=== PATIENT | female | born 1950 | race African-American/Black ===

== ENCOUNTER 2017-11-22 05:13 | Day surgery (SDC) | payer OTHER ==
[2017-11-13 11:29] LABS: INR 1.04 (0.82-1.09); PROTHROMBIN TIME (PATIENT) 11.7 SEC (9.7-13.0)
[2017-11-13 11:32] LABS: ACTIVATED PTT 30.3 SECONDS (25.2-36.5)
[2017-11-13 11:34] LABS: BASO % 0.9 % (0-2.0); HEMOGLOBIN 14.4 GM/dL (10.7-15.3); LYMPH % 28.7 % (8-40); MCH 26.8 pg (25.7-33.7); MCHC 32.7 g/dl (32.0-36.0); MEAN PLT VOLUME 8.8 fl (7.5-11.1); MONO % 7.7 % (3.8-10.2); NEUT % 60.7 % (42.8-82.8); PLATELET COUNT 251 K/MM3 (134-434); RBC 5.37 M/mm3 (3.60-5.2); RDW 15.9 % (11.6-15.6); WHITE BLOOD COUNT 5.8 K/mm3 (4.0-10.0)
[2017-11-13 11:36] LABS: CHLORIDE 104 mmol/L (98-107); POTASSIUM 4.1 mmol/L (3.5-5.1); SODIUM 140 mmol/L (136-145)
[2017-11-13 11:56] LABS: ALBUMIN 3.8 g/dl (3.4-5.0); ALK PHOS 80 U/L (45-117); ANION GAP 10 (8-16); BILIRUBIN,TOTAL 0.7 mg/dL (0.2-1.0); BLOOD UREA NITROGEN 16 mg/dL (7-18); CALCIUM 9.3 mg/dL (8.5-10.1); CO2 26 mmol/L (21-32); CREATININE 0.7 mg/dL (0.55-1.02); GLUCOSE,RANDOM 157 mg/dL (74-106); SGOT/AST 14 U/L (15-37); SGPT/ALT 23 U/L (12-78); TOT PROT 7.7 g/dl (6.4-8.2)
--- NOTE | 2017-11-14 10:10 | EKG ---
Test Reason : Blood Pressure : / mmHG Vent. Rate : 068 BPM Atrial Rate : 068 BPM P-R Int : 162 ms QRS Dur : 084 ms QT Int : 396 ms P-R-T Axes : 062 078 059 degrees QTc Int : 421 ms NORMAL SINUS RHYTHM NORMAL ECG NO PREVIOUS ECGS AVAILABLE Confirmed by YVETTE PRATT, THADDEUS ([id number]) on 11/14/2017 10:09:54 AM Referred By: BRENNEN PAGE Confirmed By:THADDEUS CRAWFORD MD
[2017-11-15 15:59] VITALS: BMI 32.7
[2017-11-22] MEDS ORDERED: MICROFIBRILLAR COLLAGEN 1 GM EACH ONE (09:39)
[2017-11-22] MEDS ORDERED: MIDAZOLAM HCL 2 MG/2 ML SINGLE DOSE VIAL ONE (11:16)
[2017-11-22] MEDS ORDERED: DEXAMETHASONE SOD PHOSPHATE 4 MG/1 ML VIAL ONE ×2 (11:23→13:24)
[2017-11-22] MEDS ORDERED: PROPOFOL 20 ML ONE ×2 (11:25→11:36)
[2017-11-22] MEDS ORDERED: ceFAZolin SODIUM 1 GM VIAL IVPB ONE (11:43)
[2017-11-22] MEDS ORDERED: ceFAZolin SODIUM 1 GM VIAL ONE (11:43)
[2017-11-22] MEDS ORDERED: BUPIVACAINE HCL/PF (5 MG/ML) 30 ML VIAL IJ ONE (11:52)
[2017-11-22] MEDS ORDERED: LIDOCAINE 1%/EPI 1:100000 (50 ML MULTI DOSE VIAL) INF ONE (11:52)
[2017-11-22] MEDS ORDERED: ePHEDrine SULFATE 50 MG/1 ML AMPULE ONE (12:37)
[2017-11-22] MEDS ORDERED: oxyCODONE HCL 5 MG TABLET PO PRN (13:49)
[2017-11-22] MEDS ORDERED: LACTATED RINGERS SOLUTION 1,000 ML IV SCH ×2 (14:00)
--- NOTE | 2017-11-22 14:06 | OP ---
Operative Note - Note: Operative Date: 11/22/17 Pre-Operative Diagnosis: Thyroid goiter Operation: Total thyroidectomy Post-Operative Diagnosis: Same as Pre-op Surgeon: See Ravi Precision Lathe Operator: Francesco Chawla Anesthesia: General Estimated Blood Loss (mls): 50 Fluid Volume Replaced (mls): 1,100 Operative Report Dictated: Yes
--- NOTE | 2017-11-22 14:07 | SURG ---
Surgery Sales And Marketing Manager Note Sales And Marketing Manager: Francesco Chawla PA-C Date of Service: 11/22/17 Diagnosis: Thyroid goiter Procedure: Total thyroidectomy I was present for the entirety of the operative procedure. For further detail, please refer to operative report.
[2017-11-22] MEDS ORDERED: CALCIUM CARBONATE 650 MG TABLET PO SCH (14:08)
[2017-11-22] MEDS ORDERED: CALCITRIOL 0.25 MCG CAPSULE (FP) PO SCH (14:08)
[2017-11-22] MEDS ORDERED: ACETAMINOPHEN 1000 MG/100 ML VIAL (NON FORMULARY) IVPB ONE ×2 (16:30→16:49)
[2017-11-22] MEDS ORDERED: CALCITRIOL 0.25 MCG CAPSULE (FP) PO ONE (16:30)
[2017-11-22] MEDS ORDERED: ACETAMINOPHEN INJECTION 100 ML IVPB ONE (16:40)
[2017-11-22] MEDS ORDERED: ONDANSETRON 4 MG/2 ML VIAL IVPUSH PRN (16:43)
[2017-11-22] MEDS ORDERED: DEXTROSE 5%-0.45% SALINE 1,000 ML IV SCH (16:45)
[2017-11-22] MEDS ORDERED: SODIUM CHLORIDE 1,000 ML IV SCH (17:00)
--- NOTE | 2017-11-22 20:10 | OP ---
DATE OF OPERATION: 11/22/2017 SURGICAL ATTENDING: Brennen Page MD PREOPERATIVE DIAGNOSIS: Thyroid goiter. POSTOPERATIVE DIAGNOSIS: Thyroid goiter. ANESTHESIA: General endotracheal. PROCEDURE: 1. Total thyroidectomy. 2. Neck ultrasound. DESCRIPTION OF PROCEDURE: The patient was taken into the operating room, placed in a supine position, endotracheally intubated. Neck ultrasound was performed showing enlarged nodules bilaterally, right greater than left, with left tracheal deviation. The neck was then prepped and draped in usual sterile fashion. Local anesthesia was administered, and a 6-cm incision was made in a mid-anterior neck skin crease. This was carried down through subcutaneous tissues and platysma. Subplatysmal flaps were raised superiorly and inferiorly, and flap hooks were placed for exposure. The median raphe was incised, and the strap muscles were elevated bilaterally. Dissection began on the right side where the superior and recurrent laryngeal nerves were identified and preserved. The parathyroid glands were also preserved. The superior, inferior, and posterior attachments were transected. The isthmus was then transected, and in this way, the right thyroid lobe was removed. It was inspected for parathyroid tissue, and none was found. It was then passed off the field for permanent evaluation. The left recurrent laryngeal and superior laryngeal nerves were identified, dissected, and preserved. The parathyroid glands were also preserved. The superior, posterior, and inferior attachments were transected, and in this way, the left thyroid lobe was removed. It was inspected for parathyroid tissue; none was found. It was then passed off the field for evaluation/permanent pathology. Hemostasis was achieved with electrocautery and Avitene. Note that the nerve monitor was used throughout. Hemostasis was assured. The wound was then closed in 3 layers. Dermabond was placed. The patient was then awakened, extubated, and taken to recovery in stable condition. Dr. Page, the attending surgeon, was present throughout the entire procedure. BRENNEN PAGE M.D. [id number]
[2017-11-23] MEDS: ACETAMINOPHEN 325 MG TABLET (FP) PO PRN ×2 (02:32→09:50)
[2017-11-23] MEDS ORDERED: glipiZIDE-XL 2.5 MG TAB.ER.24 PO SCH ×2 (07:00→10:00)
[2017-11-23 08:41] VITALS: BP 113/58; PULSE 70; TEMP 99.1
[2017-11-23] MEDS ORDERED: PT OWN MED DRAWER 7, Y5N ONE (09:49)
--- NOTE | 2017-11-23 09:49 | DS ---
Physical Exam: SUBJECTIVE: Patient seen and examined OBJECTIVE: 67yo F s/p Total thyroidectomy POD 1, Pt seen sitting in chair. Pt states that she is feeling well. Denies fever, chills, n/v. Pt tolerating PO and urinating freely. Vital Signs Temperature 99.1 F 11/23/17 08:30 Pulse Rate 70 11/23/17 08:30 Respiratory Rate 18 11/23/17 08:30 Blood Pressure 113/58 11/23/17 08:30 O2 Sat by Pulse Oximetry (%) 94 L 11/22/17 21:00 PHYSICAL EXAM GENERAL: The patient is awake, alert, and fully oriented, in no acute distress. HEAD: Normal with no signs of trauma. EYES: PERRL, extraocular movements intact, sclera anicteric, conjunctiva clear. ENT: Ears normal, nares patent, oropharynx clear without exudates, moist mucous membranes. NECK: Trachea midline, full range of motion, supple. EXTREMITIES: 2+ pulses, warm, well-perfused, no edema. NEUROLOGICAL: Cranial nerves II through XII grossly intact. Normal speech, gait not observed. PSYCH: Normal mood, normal affect. SKIN: Warm, dry, normal turgor, no rashes or lesions noted. LABS CBC,CMP WBC 5.8 K/mm3 (4.0-10.0) 11/13/17 10:51 RBC 5.37 M/mm3 (3.60-5.2) H 11/13/17 10:51 Hgb 14.4 GM/dL (10.7-15.3) 11/13/17 10:51 Hct 44.0 % (32.4-45.2) 11/13/17 10:51 MCV 82.0 fl (80-96) 11/13/17 10:51 MCH 26.8 pg (25.7-33.7) 11/13/17 10:51 MCHC 32.7 g/dl (32.0-36.0) 11/13/17 10:51 RDW 15.9 % (11.6-15.6) H 11/13/17 10:51 Plt Count 251 K/MM3 (134-434) 11/13/17 10:51 MPV 8.8 fl (7.5-11.1) 11/13/17 10:51 Absolute Neuts (auto) 3.5 # 11/13/17 10:51 Neutrophils % 60.7 % (42.8-82.8) 11/13/17 10:51 Lymphocytes % 28.7 % (8-40) 11/13/17 10:51 Monocytes % 7.7 % (3.8-10.2) 11/13/17 10:51 Eosinophils % 2.0 % (0-4.5) 11/13/17 10:51 Basophils % 0.9 % (0-2.0) 11/13/17 10:51 Nucleated RBC % 0 % (0-0) 11/13/17 10:51 Sodium 140 mmol/L (136-145) 11/13/17 10:51 Potassium 4.1 mmol/L (3.5-5.1) 11/13/17 10:51 Chloride 104 mmol/L (98-107) 11/13/17 10:51 Carbon Dioxide 26 mmol/L (21-32) 11/13/17 10:51 Anion Gap 10 (8-16) 11/13/17 10:51 BUN 16 mg/dL (7-18) 11/13/17 10:51 Creatinine 0.7 mg/dL (0.55-1.02) 11/13/17 10:51 Creat Clearance w eGFR > 60 (>60) 11/13/17 10:51 POC Glucometer 147 UNITS (80-120) 11/23/17 05:38 Random Glucose 157 mg/dL (74-106) H 11/13/17 10:51 Calcium 8.7 mg/dL (8.5-10.1) 11/23/17 07:30 Total Bilirubin 0.7 mg/dL (0.2-1.0) 11/13/17 10:51 AST 14 U/L (15-37) L 11/13/17 10:51 ALT 23 U/L (12-78) 11/13/17 10:51 Alkaline Phosphatase 80 U/L (45-117) 11/13/17 10:51 Total Protein 7.7 g/dl (6.4-8.2) 11/13/17 10:51 Albumin 3.8 g/dl (3.4-5.0) 11/13/17 10:51 HOSPITAL COURSE: Date of Admission:07/16/18 Date of Discharge: 11/23/17 The patient was admitted to the Med-Surg Unit after an elective total thyroidectomy for thyroid nodules. The day of surgery, the patient ambulated the hallways with assistance. Narcotic and non-narcotic pain management control was achieved with an oral and IV approach. Sydnee-operative IV ABX were administered. DVT prophylaxis was achieved with SCDs and early ambulation. The patient ambulated and no services were recommended upon discharge. Narcotic scripts were checked with ILS INSULATION ESTIMATOR prior to escibe. The discharge instructions and an oral pain management plan were reviewed with the patient. All questions answered. Above plan discussed with Dr. Ravi and agreed. Minutes to complete discharge: 15 Visit type - Case Type Case Type: Scheduled
[2017-11-23] MEDS ORDERED: CALCIUM CARBONATE 650 MG TABLET PO SCH (10:00)
[2017-11-23] MEDS ORDERED: METFORMIN HCL PO SCH (10:00)
[2017-11-23] MEDS ORDERED: [UNRECOGNIZED DRUG - OTHER] PO SCH (10:00)
[2017-11-23] MEDS ORDERED: DAPAGLIFLOZIN PO SCH (10:00)
[2017-11-23] MEDS ORDERED: CALCITRIOL 0.25 MCG CAPSULE (FP) PO SCH (10:00)
--- NOTE | 2017-11-26 12:21 | PATH ---
Surgical Pathology Report Patient Name: EDWNI FERGUSON [facility]. Rec. #: [id number] /Age/Gender: 1950 (Age: 67) / F Account: [id number] Location: [facility] SURGICAL Taken: 11/22/2017 Received: 11/23/2017 Reported: 11/26/2017 Physicians: See Ravi M.D. Specimen(s) Received A: RIGHT THYROID, TOTAL LOBE B: LEFT THYROID, TOTAL LOBE Clinical History Thyroid nodule Final Diagnosis A. 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 REMAINDER OF THYROID PARENCHYMA SHOWS MULTI NODULAR HYPERPLASIA. RARE LYMPHOID AGGREGATES PRESENT. TWO (2) PARATHYROID GLANDS IDENTIFIED. B. THYROID, LEFT, THYROIDECTOMY: TWO FOCI OF PAPILLARY THYROID CARCINOMA, FOLLICULAR VARIANT, INFILTRATIVE. CARCINOMA MEASURES 3.5 AND 1.5 CM IN GREATEST DIMENSION. NO LYMPHOVASCULAR OR PERINEURAL INVASION IDENTIFIED. NO EXTRATHYROIDAL EXTENSION IDENTIFIED. SURGICAL MARGINS ARE NEGATIVE. REMAINDER OF THYROID PARENCHYMA SHOWS ADENOMATOUS HYPERPLASIA. SEE CASE SUMMARY BELOW. PATHOLOGIC STAGE (pTNM): pT2 pNx Comments Thyroid: Cancer Case Summary Procedure _X_ Total thyroidectomy Tumor Focality _X_ Multifocal (Two foci) Tumor Site _X_ Left lobe Tumor Size Greatest dimension (centimeters): 3.5 cm Histologic Type Papillary Carcinomas _X_ Papillary carcinoma, follicular variant, infiltrative Margins _X_ Uninvolved by carcinoma Angioinvasion (Vascular Invasion) _X_ Not identified Lymphatic Invasion _X_ Not identified Extrathyroidal Extension _X_ Not identified Regional Lymph Nodes _X_ No lymph nodes submitted or found Pathologic Stage Classification (pTNM, AJCC 8th Edition) For Papillary, Follicular, Poorly Differentiated, Hurthle Cell and Anaplastic Thyroid Carcinoma Primary Tumor (pT) _X_ pT2: Tumor >2 cm, but =4 cm in greatest dimension, limited to thyroid Regional Lymph Nodes (pN) _X_ pNX: Regional lymph nodes cannot be assessed Additional Pathologic Findings _X__ Adenoma (Right lobe) _X__ Adenomatoid nodule(s) or nodular follicular disease (nodular hyperplasia) Comment: Office of Dr. Ravi informed that significant findings will be faxed ([place]rielle). Electronically Signed Monica Laureana Ryan-Amish M.D. Gross Description A. Received in formalin labeled "right thyroid lobe," is an 81 g, 6.8 x 5.5 x 3.5 cm thyroid lobe. The outer capsule is red-brown with focal adhesions. Sectioning reveals a 5.2 x 5.1 x 3.8 cm gaona, lobulated, solid mass comprising the entire central and lower pole. The mass abuts the outer capsule but does not appear to invade through it. The remaining thyroid parenchyma is red-brown and beefy. [employer] Business Segment Leader sections are submitted in 10 cassettes as follows: [id number] submitted mass from superior to inferior; 10-uninvolved upper pole parenchyma. B. Received in formalin labeled "left thyroid lobe," is a 32 g, 6.0 x 3.2 x 2.8 cm intact thyroid lobe. The outer capsule is red-brown and intact. Sectioning reveals 2 separate nodules measuring 2.2 and 3.5 cm in greatest dimension, comprising the majority of the specimen. The smaller nodule is in the superior pole. The cut surface of the smaller nodule is gaona and solid with focal hemorrhage. The larger nodule is in the inferior pole. The cut surface of the larger nodule is homogeneous gaona and solid. The nodules abut the outer capsule but do not appear to invade through it. There is minimal remaining normal thyroid parenchyma identified. [employer] Business Segment Leader sections are submitted in 10 cassettes as follows: 1-5-smaller superior nodule; 6-10-larger inferior nodule. 11/23/2017 [facility]2017
== END 2017-11-23 10:41 | disposition home or self-care (01) ==
LOC: JASU-SURG 05:13 → J8W 17:55 → JASU-SURG 11-23 10:41
PROVIDERS: ATTEND Surgery
PROC: 0GBJ0ZZ Excision of Thyroid Gland Isthmus, Open Approach (ICD-10-PCS; 2017-11-22)
PROC: 0GTK0ZZ Resection of Thyroid Gland, Open Approach (ICD-10-PCS; principal; 2017-11-22 10:30)
DX: E04.2 Nontoxic multinodular goiter (principal); E06.3 Autoimmune thyroiditis; E11.9 Type 2 diabetes mellitus without complications; Z79.84 Long term (current) use of oral hypoglycemic drugs; E66.9 Obesity, unspecified
CPT/HCPCS: 36415; 71045-TC-FY; 80053; 82310; 82962; 85025; 85610; 85730; 86850; 86900; 86901; 88307-TC; 93005; 93010; 94760; J0131